=== PATIENT | female | born 1960 | race Caucasian/White ===

== ENCOUNTER 2022-06-03 08:37 | Outpatient (CLI) | payer OTHER, SELFPAY ==
[2022-06-03 11:06] LABS: Albumin* 4.5 g/dL (3.3-5.0); Chloride* 101 mmol/L (96-114)
[2022-06-03 11:07] LABS: Potassium* 4.7 mmol/L (3.6-5.1); Sodium* 137 mmol/L (135-149)
[2022-06-03 11:09] LABS: Aspartate Amino Transferase* 28 U/L (12-35); Bilirubin Total* 0.3 mg/dL (0.1-1.5); Carbon Dioxide* 27 mmol/L (20-32); Cholesterol* 196 mg/dL (90-199); Creatinine* 0.8 mg/dL (0.5-1.5); Estimated Glomerular Filt Rate 83 ml/min; Total Protein* 7.6 g/dL (6.0-8.3)
[2022-06-03 11:10] LABS: Alanine Aminotransferase* 21 U/L (4-35); Alkaline Phosphatase* 76 U/L (40-150); Blood Urea Nitrogen* 14 mg/dL (7-30); Calcium* 9.2 mg/dL (8.4-10.6); Glucose* 113 mg/dL (60-115); HDL Cholesterol* 68 mg/dL (>=50); LDL Cholesterol Calculated 109 mg/dL (<100); Triglycerides* 95 mg/dL (40-149)
== END 2022-06-03 08:38 | disposition home or self-care (01) ==
PROVIDERS: PCP Family Medicine; Visit Provider Family Medicine
DX: E03.9 Hypothyroidism, unspecified (principal); E78.5 Hyperlipidemia, unspecified
CPT/HCPCS: 80053; 80061; 84443

== ENCOUNTER 2023-03-11 16:55 | Emergency (ER) | payer OTHER, SELFPAY ==
[2023-03-11 17:08] VITALS: BP 195/94; PULSE 70; RESP 18; TEMP 36.9; O2SAT 99; BMI 29.1
--- NOTE | 2023-03-11 17:57 | ED_ITS ---
HPI - Animal Bite General Chief Complaint: Animal Bite Stated Complaint: Cat bite, outside cat Time Seen by Provider: 03/11/23 17:11 History of Present Illness HPI narrative: This 62-year-old female comes in with injury to her right hand from a cat bite that occurred last evening. [place] a couple cats that are not vaccinated. 1 of them bit her several times in her right hand. The patient has several puncture wounds with localized erythema but no significant swelling or spreading erythema. She does not report any fevers. Related Data Previous Rx's Medication Instructions Recorded atorvastatin 40 mg tablet 40 mg PO QPM #90 tabs 06/10/22 levothyroxine 50 mcg capsule 50 mcg PO QDAY #90 caps 06/10/22 Allergies Allergy/AdvReac Type Severity Reaction Status Date / Time No Known Allergy Allergy Unknown Uncoded 06/10/22 08:57 Review of Systems Status of ROS: Reports: 10 or more systems reviewed and unremarkable except as noted in History and below Narrative: Constitutional: No fevers, no weight gain or loss. Eyes: No discharge. No vision changes. HENT: No congestion, no sore throat, no ear pain. Cardiovascular: No chest pain, no palpitations. Respiratory: No shortness of breath, no wheezes, no cough. Gastrointestinal: No abdominal pain, no vomiting, no diarrhea. Genitourinary: No dysuria, no hematuria. Musculoskeletal: Normal range of motion. Skin: No rashes, no pruritis. 5-6 puncture wounds in the right hand. Neurological: No dizziness, weakness, sensory change, speech change. Endo/Heme/Allergies: No bruising or bleeding. No polydipsia. Pysch: no suicidality, no anxiety, no insomnia. All other systems reviewed and are negative. [facility] Medical History (Updated 03/11/23 @ 18:07 by Solomon Cole MD) Cigarette nicotine dependence ?F17.210 - Nicotine dependence, cigarettes, uncomplicated (ICD-10) Polyp of colon (2014) ?K63.5 - Polyp of colon (ICD-10) Hypothyroidism ?E03.9 - Hypothyroidism, unspecified (ICD-10) Goiter ?E04.9 - Nontoxic goiter, unspecified (ICD-10) Dyslipidemia ?E78.5 - Hyperlipidemia, unspecified (ICD-10) Diverticulitis ?K57.92 - Diverticulitis of intestine, part unspecified, without perforation or abscess without bleeding (ICD-10) Surgical History (Updated 06/10/22 @ 11:12 by Linda Cerrato MD) Hx of colonoscopy with polypectomy (~2013) ?Z98.890 - Other specified postprocedural states (ICD-10) ?Z86.010 - Personal history of colonic polyps (ICD-10) History of hysterectomy for benign disease (~1984) ?Z90.710 - Acquired absence of both cervix and uterus (ICD-10) Family History (Updated 06/10/22 @ 09:53 by Linda Cerrato MD) Other Adopted Social History (Updated 06/10/22 @ 11:13 by Linda Cerrato MD) Narrative: 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 HEENT: Normocephalic, atraumatic. Neck: Normal range of motion. Nontender. Supple. Heart: Regular. No murmurs. Normal rate. Intact distal pulses. Lungs: Clear to auscultation. No chest discomfort. No wheezes, rhonchi, or rales. Abdomen: Normal bowel sounds. Nontender. No rebound tenderness. Genitalia: Deferred. Back: No midline tenderness. Normal range of motion. Extremities: Normal range of motion. No injury. Skin: No rash. Puncture wounds in the right hand. None need repair. Neurologic: No altered sensation. No weakness. Alert and oriented. Psychiatric: No suicidality. No anxiety or depression. No insomnia. Nursing notes and vitals signs are reviewed. Const: Vital Signs, click to edit/add: Vital Signs - 24 hr 03/11/23 17:08 Temperature 98.5 F Pulse Rate [Right Pulse Oximeter] 70 Respiratory Rate 18 Blood Pressure [Ri ght Upper Arm] 195/94 H Pulse Oximetry 99 Oxygen Delivery Me thod Room Air Course Vital Signs Vital signs: Initial Vital Signs Temperature 98.5 F 03/11/23 17:08 Temperature Source Temporal Artery Scan 03/11/23 17:08 Pulse Rate 70 03/11/23 17:08 Respiratory Rate 18 03/11/23 17:08 Blood Pressure 195/94 H 03/11/23 17:08 Blood Pressure Mean 127 H 03/11/23 17:08 Blood Pressure Position Sitting 03/11/23 17:08 Pulse Oximetry 99 03/11/23 17:08 Oxygen Delivery Method Room Air 03/11/23 17:08 Vital Signs Temperature 98.5 F 03/11/23 17:08 Pulse Rate 70 03/11/23 17:08 Respiratory Rate 18 03/11/23 17:08 Blood Pressure 195/94 H 03/11/23 17:08 Pulse Oximetry 99 03/11/23 17:08 Oxygen Delivery Method Room Air 03/11/23 17:08 Temperature 98.5 F 03/11/23 17:08 Pulse Rate 70 03/11/23 17:08 Respiratory Rate 18 03/11/23 17:08 Blood Pressure 195/94 H 03/11/23 17:08 Pulse Oximetry 99 03/11/23 17:08 Oxygen Delivery Method Room Air 03/11/23 17:08 MDM - Animal Bite MDM Narrative Medical decision making narrative: This patient was bit by a cat that is not vaccinated. She is at risk for bacterial infection in her hand so a prescription for Augmentin is provided. The cat be observed or euthanized and tested for rabies. The patient did not wish to have this done as it was her son's cat. So she did received the 1st of the series of rabies immunoglobulin and vaccination. Discharge Plan Discharge Clinical Impression: Cat bite Patient Disposition: Home, Self-Care Condition: Stable Additional Instructions: Return on day 3 (March 14), day 7 (March 18), and day 14 (March 25) to complete the series for rabies vaccination. Take Augmentin as prescribed. Follow up with MD otherwise as needed. Prescriptions: No Action atorvastatin 40 mg tablet 40 mg PO QPM Qty: 90 4RF levothyroxine 50 mcg capsule 50 mcg PO QDAY Qty: 90 4RF Follow Up/Referrals: Linda Cerrato MD [Primary Care Provider] - Stand Alone Forms: [employer] Info Instructions
[2023-03-11] MEDS: RABIES IMMUNE GLOBULIN 150 UNIT/ML INJ 1530 UNIT INFILTRATI (19:00)
--- NOTE | 2023-03-11 19:02 | ED.NURSE ---
immune globulin 10.2 ml im in 4 divided doses. opposite the vaccine. rat -2, rd 1, lat-1 expires 11/2024. lot [id number].
--- NOTE | 2023-03-11 19:21 | ED.NURSE ---
t dap -01/15/2021, is mnd.
== END 2023-03-11 19:20 | disposition home or self-care (01) ==
PROVIDERS: Emergency Provider Emergency Medicine Emergency Medical Services; PCP Family Medicine
DX: S61.451A Open bite of right hand, initial encounter (principal); W55.01XA Bitten by cat, initial encounter
CPT/HCPCS: 90377; 90471; 90675; 99283; 99284

== ENCOUNTER 2023-03-25 09:27 | Outpatient (RCR) | payer OTHER, SELFPAY ==
--- NOTE | 2023-03-14 17:22 | ED.NURSE ---
Pt here for her rabies injection, after being bit by a barn cat. Pt presents with rabies vaccination schedule and this nurse reviewed with her. VS BP176/78, T97.4F, P92, R16. Gave rabies injection in right deltoid. t had no complaints of pain and no more questions concerning rabies vaccination schedule.
[2023-03-18 14:09] VITALS: BP 177/80; PULSE 67; RESP 14; TEMP 36.5; O2SAT 98
--- NOTE | 2023-03-18 14:11 | ED.NURSE ---
Pt here for rabies vaccine. Vaccine given in L deltoid, per Pt request. Pt tolerated well. VSS. Denies questions at this time. Pt states she will return March 25 for her last vaccine.
[2023-03-25 09:31] VITALS: BP 161/77; PULSE 57; RESP 16; TEMP 36.6; O2SAT 98
== END 2023-03-25 12:00 | disposition home or self-care (01) ==
PROVIDERS: PCP Family Medicine; Visit Provider Emergency Medicine Emergency Medical Services
DX: Z20.3 Contact with and (suspected) exposure to rabies (principal); Z29.14 Encounter for prophylactic rabies immune globulin; S61.451S Open bite of right hand, sequela; W55.01XS Bitten by cat, sequela; Z23 Encounter for immunization
CPT/HCPCS: 80307; 90471; 90675

== ENCOUNTER 2023-10-09 13:39 | Outpatient (CLI) | payer OTHER, SELFPAY | END 2023-10-09 13:40 | disposition home or self-care (01) | LOC: NFLDREF 10-13 09:50 | PROVIDERS: PCP Family Medicine; Referring Provider Family Medicine; Visit Provider Family Medicine | DX: E03.9 Hypothyroidism, unspecified (principal); E78.5 Hyperlipidemia, unspecified; Z13.228 Encounter for screening for other metabolic disorders | CPT/HCPCS: 80053; 80061; 84443 ==

== ENCOUNTER 2024-10-04 10:03 | Outpatient (CLI) | payer OTHER, SELFPAY | END 2024-10-04 10:04 | disposition home or self-care (01) | LOC: NFLDREF 10-13 16:44 | PROVIDERS: PCP Family Medicine; Referring Provider Family Medicine; Visit Provider Family Medicine | DX: I10 Essential (primary) hypertension (principal); E78.5 Hyperlipidemia, unspecified; E03.9 Hypothyroidism, unspecified | CPT/HCPCS: 80053; 80061; 84443 ==